=== PATIENT | female | born 2000 | race African-American/Black ===

== ENCOUNTER 2020-08-11 19:43 | Emergency (ER) | payer OTHER ==
[~2020-08-11] VITALS: Ht 160 cm; Wt 77.1 kg
[2020-08-11] MEDS ORDERED: IBUPROFEN 600 MG TAB PO STA (20:18)
[2020-08-11] MEDS ORDERED: IBUPROFEN 600 MG TAB ONE (20:55)
[2020-08-11] MEDS ORDERED: NAPROSYN500 MG PO (21:55)
[2020-08-11] MEDS ORDERED: CYCLOBENZAPRINE5 MG PO (21:55)
[2020-08-11] MEDS ORDERED: CYCLOBENZAPRINE HCL 10 MG TAB PO ONE (22:00)
[2020-08-11] MEDS ORDERED: HYDRALAZINE HCL 20 MG/ML VIAL IV STA (22:04)
[2020-08-11 22:12] VITALS: BP 138/77
[2020-08-11] MEDS ORDERED: ASPIRIN 81 MG CHEW TAB PO ONE ×2 (22:15)
[2020-08-12] MEDS ORDERED: ASPIRIN 325 MG TAB PO SCH (09:00)
== END 2020-08-11 22:12 | disposition home or self-care (01) ==
LOC: FSED 20:20
DX: S00.83XA Contusion of other part of head, initial encounter (principal); V43.52XA Car driver injured in collision with other type car in traffic accident, initial encounter; Y92.488 Other paved roadways as the place of occurrence of the external cause; J45.909 Unspecified asthma, uncomplicated
CPT/HCPCS: 70450; 72125; 99283